=== PATIENT | female | born 1975 | race Caucasian/White ===

== ENCOUNTER 2021-04-01 12:06 | Emergency (ER) | payer OTHER ==
[~2021-04-01] VITALS: Ht 172.7 cm; Wt 102.1 kg
[2021-04-01 12:45] LABS: HEMOGLOBIN 15.1 gm/dl (12.3-15.3); RED BLOOD COUNT 4.86 M/UL (4.00-5.10); WHITE BLOOD COUNT 5.5 K/UL (4.5-11.0)
[2021-04-01 13:05] LABS: BUN/CREATININE RATIO 13 (0-10)
[2021-04-01] MEDS ORDERED: VIBRAMYCIN 100100 MG PO (17:37)
[2021-04-01] MEDS ORDERED: IBUPROFEN800 MG PO (17:37)
[2021-04-01] MEDS ORDERED: PROAIR DIGIHAL90 MCG INH (17:37)
[2021-04-01] MEDS ORDERED: NASONEX17 GM (17:37)
== END 2021-04-01 17:45 | disposition home or self-care (01) ==
LOC: ER1 12:06
PROVIDERS: Nurse Practitioner
DX: Z23 Encounter for immunization (principal); U07.1 COVID-19; J12.82 Pneumonia due to coronavirus disease 2019; E11.9 Type 2 diabetes mellitus without complications; K21.9 Gastro-esophageal reflux disease without esophagitis; Z90.49 Acquired absence of other specified parts of digestive tract
CPT/HCPCS: 71045; 80053; 83690; 85025; 99285; M0243

== ENCOUNTER → 2021-05-03 | Outpatient (CLI) | payer OTHER ==
[~2021-05-03] MED LIST: IBUPROFEN800 MG PO; NASONEX17 GM; PROAIR DIGIHAL90 MCG INH; VIBRAMYCIN 100100 MG PO
[2021-05-03 08:59] LABS: HEMOGLOBIN 12.4 gm/dl (12.3-15.3); RED BLOOD COUNT 4.16 M/UL (4.00-5.10); WHITE BLOOD COUNT 6.9 K/UL (4.5-11.0)
[2021-05-03 09:16] LABS: BUN/CREATININE RATIO 21 (0-10)
== END ==
LOC: LAB 07:39
PROVIDERS: Internal Medicine
DX: E11.9 Type 2 diabetes mellitus without complications (principal); E78.5 Hyperlipidemia, unspecified; I10 Essential (primary) hypertension; Z79.899 Other long term (current) drug therapy; E55.9 Vitamin D deficiency, unspecified
CPT/HCPCS: 36415; 80053; 80061; 82043; 82570; 83036; 84439; 84443; 85025

== ENCOUNTER → 2021-05-10 | Outpatient (CLI) | payer OTHER | LOC: RAD 07:32 | DX: J18.9 Pneumonia, unspecified organism (principal) | CPT/HCPCS: 71046 ==

== ENCOUNTER 2021-05-12 16:25 | Emergency (ER) | payer OTHER ==
[2021-05-12 17:52] LABS: HEMOGLOBIN 14.3 gm/dl (12.3-15.3); RED BLOOD COUNT 4.57 M/UL (4.00-5.10); WHITE BLOOD COUNT 9.4 K/UL (4.5-11.0)
[2021-05-12 18:07] LABS: BUN/CREATININE RATIO 17 (0-10)
== END 2021-05-12 21:16 | disposition home or self-care (01) ==
LOC: ER1 16:25
PROVIDERS: Physician Assistant Medical
DX: R06.00 Dyspnea, unspecified (principal)
CPT/HCPCS: 80053; 84484; 85025; 93005; 99285; Q9967